=== PATIENT | female | born 1970 | race Two or more races ===

== ENCOUNTER → 2018-09-04 | Outpatient (CLI) | payer OTHER | LOC: BRMIMAGING 15:52 ==

== ENCOUNTER → 2018-11-09 | Outpatient (CLI) | payer OTHER | LOC: BRMIMAGING 08:36 | PROVIDERS: ATTEND Internal Medicine | DX: M79.641 Pain in right hand (principal); M79.642 Pain in left hand | CPT/HCPCS: 73130-PO ==